=== PATIENT | male | born 1935 | race Caucasian/White ===

== ENCOUNTER → 2017-03-28 | Outpatient (REF) ==
[~2017-03-28] MED LIST: ASPIRIN E.C. 8181 MG PO; COUMADIN PO; CRESTOR10 MG PO; GLIMEPIRIDE4 MG PO; LASIX20 MG PO; METFORMIN1000 MG PO; NIACIN TIME RE500 MG PO; TRIAMTERENE/HCT1 TAB PO; ZYLOPRIM300 MG PO
== END ==
LOC: ZLAB.WCH 11:59
DX: Z01.89 Encounter for other specified special examinations (principal)

== ENCOUNTER → 2017-06-20 | Outpatient (REF) | LOC: ZLAB.WCH 12:25 | DX: Z01.89 Encounter for other specified special examinations (principal) ==

== ENCOUNTER → 2017-09-23 | Outpatient (REF) | LOC: ZLAB.WCH 18:04 | DX: Z01.89 Encounter for other specified special examinations (principal) ==

== ENCOUNTER → 2017-09-27 | Outpatient (REF) | LOC: ZLAB.WCH 10:37 | DX: Z01.89 Encounter for other specified special examinations (principal) ==

== ENCOUNTER → 2017-09-28 | Outpatient (REF) | LOC: ZLAB.WCH 18:08 | DX: Z01.89 Encounter for other specified special examinations (principal) ==